=== PATIENT | female | born 2000 | race African-American/Black ===

== ENCOUNTER 2022-07-13 12:51 | Emergency (ER) | payer MEDICAID, OTHER ==
[~2022-07-13] VITALS: Ht 157.5 cm; Wt 64.6 kg
--- NOTE | 2022-07-13 13:04 | ED GI ---
General Chief Complaint: Abdominal/GI Problems Stated Complaint: ABD PAIN/RECTAL BLEEDING/CHEST PAIN History of Present Illness Date Seen by Provider: Jul 13, 2022 Time Seen by Provider: 13:02 Initial Comments 22-year-old female with PMH of ulcerative colitis and anemia, is here with complaints of ongoing abdominal pain, intermittent lightheadedness, lethargy, nausea and vomiting, blood in her stool, and lack of appetite for the past 2 weeks or so. Patient has a GI specialist at [facility], she is currently on mesalamine, and will be starting a new medication sometime this week. Patient feels as if her hemoglobin may be low due to her symptoms and has occasional heartburn and chest discomfort which comes and goes. Patient is feeling very tired and has been having diarrhea as well. Patient also feels as if her heart is beating fast. Denies fever and chills, shortness of breath, constipation. Allergies and Home Medications Allergies Coded Allergies: No Known Drug Allergies (Unverified , 07/13/22) Patient Home Medication List Home Medication List Reviewed: Yes Review of Systems Review of Systems Constitutional: dizziness, malaise EENTM: No Symptoms Reported Respiratory: No Symptoms Reported Cardiovascular: Palpitations, Other (Chest discomfort) Gastrointestinal: Abdominal Pain, Diarrhea, Nausea, Poor Appetite, Poor Fluid Intake, Rectal Bleeding, Vomiting Genitourinary: No Symptoms Reported Musculoskeletal: no symptoms reported Skin: no symptoms reported Psychiatric/Neurological: No Symptoms Reported Endocrine: No Symptoms Reported Hematologic/Lymphatic: No Symptoms Reported Physical Exam Vital Signs Vital Signs - First Documented 07/13/22 12:55 Temp 36.0 Pulse 127 Resp 18 B/P (MAP) 131/92 (105) Pulse Ox 100 O2 Delivery Room Air Capillary Refill : Height/Weight/BMI Height: '" Weight: lbs. oz. kg; BMI Method: General Appearance: WD/WN, no apparent distress HEENT: PERRL/EOMI Neck: full range of motion Respiratory: chest non-tender, lungs clear, normal breath sounds, no respiratory distress Cardiovascular: regular rate, rhythm, no edema Gastrointestinal: normal bowel sounds, soft, no organomegaly, tenderness (Generalized) Rectal: normal exam, normal rectal tone, heme positive stool, other (No hemorrhoids seen or palpated) Extremities: normal range of motion Back: no CVA tenderness Neurologic/Psychiatric: alert, normal mood/affect, oriented x 3 Skin: normal color Focused Exam Lactate Level 07/13/22 13:20: Lactic Acid Level 1.29 Lactic Acid Level Laboratory Tests Test 07/13/22 13:20 Lactic Acid Level 1.29 MMOL/L (0.50-2.00) Progress/Results/Core Measures Results/Orders Lab Results Laboratory Tests Test 07/13/22 13:00 07/13/22 13:20 07/13/22 15:20 Range/Units Urine Color YELLOW Urine Clarity CLEAR Urine pH 6.0 5-9 Urine Specific [place] 1.010 L 1.016-1.022 Urine Protein NEGATIVE NEGATIVE Urine Glucose (UA) NEGATIVE NEGATIVE Urine Ketones NEGATIVE NEGATIVE Urine Nitrite NEGATIVE NEGATIVE Urine Bilirubin NEGATIVE NEGATIVE Urine Urobilinogen 0.2 < = 1.0 MG/DL Urine Leukocyte Esterase NEGATIVE NEGATIVE Urine RBC (Auto) TRACE-I H NEGATIVE Urine RBC NONE /HPF Urine WBC 10-25 H /HPF Urine Squamous Epithelial Cells >50 H /HPF Urine Crystals NONE /LPF Urine Bacteria LARGE H /HPF Urine Casts NONE /LPF Urine Mucus NEGATIVE /LPF Urine Yeast FEW H /HPF Urine Culture Indicated NO Urine Test NEGATIVE NEGATIVE Urine Opiates Screen NEGATIVE NEGATIVE Urine Oxycodone Screen NEGATIVE NEGATIVE Urine Methadone Screen NEGATIVE NEGATIVE Urine Propoxyphene Screen NEGATIVE NEGATIVE Urine Barbiturates Screen NEGATIVE NEGATIVE Ur Tricyclic Antidepressants Screen NEGATIVE NEGATIVE Urine Phencyclidine Screen NEGATIVE NEGATIVE Urine Amphetamines Screen NEGATIVE NEGATIVE Urine Methamphetamines Screen NEGATIVE NEGATIVE Urine Benzodiazepines Screen NEGATIVE NEGATIVE Urine Cocaine Screen NEGATIVE NEGATIVE Urine Cannabinoids Screen NEGATIVE NEGATIVE White Blood Count 14.1 H 4.3-11.0 10^3/uL Red Blood Count 4.76 3.80-5.11 10^6/uL Hemoglobin 11.0 L 11.5-16.0 g/dL Hematocrit 36 35-52 % Mean Corpuscular Volume 75 L 80-99 fL Mean Corpuscular Hemoglobin 23 L 25-34 pg Mean Corpuscular Hemoglobin Concent 31 L 32-36 g/dL Red Cell Distribution Width 18.3 H 10.0-14.5 % Platelet Count 278 130-400 10^3/uL Mean Platelet Volume 10.1 9.0-12.2 fL Immature Granulocyte % (Auto) 0 % Neutrophils (%) (Auto) 49 42-75 % Lymphocytes (%) (Auto) 28 12-44 % Monocytes (%) (Auto) 11 0-12 % Eosinophils (%) (Auto) 11 H 0-10 % Basophils (%) (Auto) 1 0-10 % Neutrophils # (Auto) 6.9 1.8-7.8 10^3/uL Lymphocytes # (Auto) 4.0 1.0-4.0 10^3/uL Monocytes # (Auto) 1.5 H 0.0-1.0 10^3/uL Eosinophils # (Auto) 1.6 H 0.0-0.3 10^3/uL Basophils # (Auto) 0.1 0.0-0.1 10^3/uL Immature Granulocyte # (Auto) 0.1 0.0-0.1 10^3/uL Neutrophils % (Manual) 55 % Lymphocytes % (Manual) 38 % Monocytes % (Manual) % Eosinophils % (Manual) 7 % Sodium Level 134 L 135-145 MMOL/L Potassium Level 3.6 3.6-5.0 MMOL/L Chloride Level 96 L 98-107 MMOL/L Carbon Dioxide Level 25 21-32 MMOL/L Anion Gap 13 5-14 MMOL/L Blood Urea Nitrogen 8 7-18 MG/DL Creatinine 0.69 0.60-1.30 MG/DL Estimat Glomerular Filtration Rate 126 BUN/Creatinine Ratio 12 Glucose Level 87 70-105 MG/DL Lactic Acid Level 1.29 0.50-2.00 MMOL/L Calcium Level 9.8 8.5-10.1 MG/DL Corrected Calcium 10.0 8.5-10.1 MG/DL Magnesium Level 2.2 1.6-2.4 MG/DL Total Bilirubin 0.2 0.1-1.0 MG/DL Aspartate Amino Transf (AST/SGOT) 33 5-34 U/L Alanine Aminotransferase (ALT/SGPT) 13 0-55 U/L Alkaline Phosphatase 141 H 40-136 U/L Troponin I 0.32 *H 0.36 *H <0.30 NG/ML Total Protein 8.4 H 6.4-8.2 GM/DL Albumin 3.8 3.2-4.5 GM/DL Lipase 69 8-78 U/L Smear Scan PLT CLUMPS My Orders Orders - JONAH BLUE MD Cbc With Automated Diff (07/13/22 13:11) Comprehensive Metabolic Panel (07/13/22 13:11) Drug Screen Stat (Urine) (07/13/22 13:11) Hcg,Qualitative Urine (07/13/22 13:11) Lactic Acid Analyzer (07/13/22 13:11) Lipase (07/13/22 13:11) Magnesium (07/13/22 13:11) Ua Culture If Indicated (07/13/22 13:11) Ct Abdomen/Pelvis W (07/13/22 13:12) Manual Differential (07/13/22 13:20) Troponin I Fs (07/13/22 13:38) Ekg Tracing (07/13/22 13:38) Continuous Ekg Monitoring (07/13/22 13:38) Chest 1 View Ap/Pa Only (07/13/22 13:38) Occult Blood Stool (07/13/22 13:39) Iohexol Injection (Omnipaque 350 Mg/Ml 1 (07/13/22 14:00) Received Contrast (Hold Metformin- Contr (07/13/22 14:00) Ns (Ivpb) (Sodium Chloride 0.9% Ivpb Bag (07/13/22 14:00) Aspirin Chewable Tablet (Baby Aspirin Ch (07/13/22 14:15) Pantoprazole Injection (Protonix Injecti (07/13/22 14:15) Troponin I Fs (07/13/22 14:25) Ekg Tracing (07/13/22 14:26) Ed Iv/Invasive Line Start (07/13/22 16:50) Ns Iv 1000 Ml (Sodium Chloride 0.9%) (07/13/22 17:00) Medications Given in ED Current Medications Medications Dose Ordered Sig/Nella Route Start Time Stop Time Status Last Admin Dose Admin Aspirin 324 mg ONCE ONCE PO 07/13/22 14:15 07/13/22 14:16 DC 07/13/22 14:16 324 MG Iohexol 100 ml ONCE ONCE IV 07/13/22 14:00 07/13/22 14:06 DC 07/13/22 14:01 80 ML Pantoprazole 40 mg ONCE ONCE IV 07/13/22 14:15 07/13/22 14:16 DC 07/13/22 14:17 40 MG Sodium Chloride 100 ml ONCE ONCE IV 07/13/22 14:00 07/13/22 14:06 DC 07/13/22 14:02 100 ML Vital Signs/I&O 07/13/22 12:55 Temp 36.0 Pulse 127 Resp 18 B/P (MAP) 131/92 (105) Pulse Ox 100 O2 Delivery Room Air Progress Progress Note : Progress Note 1. ABDOMINAL PAIN: EXACERBATION OF ULCERATIVE COLITIS with POSITIVE FOB - CT ABD: colitis - UA/positive for RBC, WBC, bacteria - UDS is negative -Fecal occult blood at bedside: Positive - CBC: WBC is 14 but no left shift, Hemoglobin is 11, MCV 75 - CMP: unremarkable - lactic acid normal - NS IVF bolus STAT/ Protonix 40mg iv STAT -Patient is currently taking mesalamine at home -Patient's GI specialist is at [facility], and she has an appointment with him on Thursday. CHEST DISCOMFORT: TYPE 2 NSTEMI - CXR: normal - EKG: tachycardia - Troponin: 0.32, second troponin is 0.36 - ASA 324mg STAT -Patient's heart rate has been ranging between 105 to 127/min since she has been in the ER. - Discussed initially with hospitalist at [facility] in [place], Dr. James, who advised to transfer to [facility] since patient's GI specialist is there. -Discussed with hospitalist at [facility], and is accepted for admission. -Patient does not want to go to the hospital by ambulance. She wants to go by private vehicle. Initial ECG Impression Date: Jul 13, 2022 Initial ECG Impression Time: 13:55 Initial ECG Rate: 119 Initial ECG Rhythm: S.Tach Initial ECG Impression: Nonspecific Changes Initial ECG Comparisson: No Previous ECG Available EKG : EKG Time: 15:21 Rate: 108 Rhythm: S.Tach ECG Comparisson: Unchanged ECG Impression: Nonspecific Changes Diagnostic Imaging Diagonstic Imaging: Xray, CT Plain Films/CT/US/NM/MRI: chest, abdomen Comments [facility], [place] NAME: ALEJANDRO PATEL MED REC#: [id number] PT STATUS: REG ER : 2000 PHYSICIAN: JONAH BLEU MD ADMIT DATE: 07/13/22/ER FS Draft Date of Exam:07/13/22 CT ABDOMEN/PELVIS W PROCEDURE: CT abdomen and pelvis with contrast. TECHNIQUE: Multiple contiguous axial images were obtained through the abdomen and pelvis after administration of intravenous contrast. Auto Exposure Controls were utilized during the CT exam to meet ALARA standards for radiation dose reduction. All CT scans use one or more of the following dose optimizing techniques: automated exposure control, MA and/or KvP adjustment based on patient size and exam type or iterative reconstruction. INDICATION: Abdominal pain and rectal bleeding. COMPARISON: No comparison available. FINDINGS: Lung bases are clear. There is no pneumonia or edema. There is no effusion. The liver demonstrates some focal fatty infiltration along the falciform ligament. Portal veins and hepatic veins are patent. The gallbladder is nondistended. There is no radiodense stone or finding of biliary dilatation. The pancreas demonstrates no evidence of abnormality. The spleen is normal in size. There is no adrenal mass. The kidneys enhance normally and are nonobstructed. There is no finding of bowel obstruction. There is no abnormal bowel dilation. There does however appear to be a somewhat edematous appearance of the colon with a few fluid-filled loops of nondilated small bowel. The appendix is normal. There is an involuting right ovarian cyst. Left ovary normal. Uterus and urinary bladder unremarkable. There is no free fluid. There is no free air. There is no adenopathy. There is no evidence of an abscess. The aorta is normal. There is no acute or suspicious osseous abnormality. IMPRESSION: 1. Mildly edematous appearance of the contracted colon. There are also a few fluid-filled loops of nondilated small bowel. An underlying enteritis or colitis would be a consideration. There is no evidence of bowel obstruction. 2. The appendix is normal. 3. Involuting right ovarian cyst. Dictated on workstation # [id number] Dict: 07/13/22 1409 Trans: 07/13/22 1435 [facility] [id number] Interpreted by: RONNIE SONI MD Electronically signed by: [facility] [place], [place] NAME: ALJEANDRO PATEL [facility] REC#: [id number] PT STATUS: REG ER : 2000 PHYSICIAN: JONAH BLUE MD ADMIT DATE: 07/13/22/ER FS Draft Date of Exam:07/13/22 CHEST 1 VIEW AP/PA ONLY INDICATION: Chest pain. COMPARISON: None. DISCUSSION: Single portable upright view of the chest was obtained. Normal heart size. No consolidation, pleural fluid, or pneumothorax. No osseous abnormality. IMPRESSION: Negative chest. Dictated on workstation # [id number] Dict: 07/13/22 1347 Trans: 07/13/22 1356 [id number] Interpreted by: AMEENA METCALF MD Electronically signed by: Departure Communication (Admissions) Time/Spoke to Admitting Phy: 16:40 -Discussed with hospitalist, Dr Gomez, at [facility], and is accepted for admission. Impression Primary Impression: Silent non-ST elevation myocardial infarction (NSTEMI) Additional Impression: Acute ulcerative colitis with rectal bleeding Disposition: T-[facility] Condition: Stable Admissions Decision to Admit Reason: Admit from ER (General) Decision to Admit/Date: Jul 13, 2022 Time/Decision to Admit Time: 15:45 Transfer Transfer Reason: Exceeds level of care Time Spoke to Accepting Phy: 16:40 Transfer Progress Notes Accepted by Dr Gomez for admission Transfer Facility: [facility] Method of Transfer: Private Vehicle Departure-Patient Inst. Referrals: NO,LOCAL PHYSICIAN (PCP/Family) Primary Care Physician JONAH BLUE MD Jul 13, 2022 13:04
[2022-07-13 13:17] LABS: AMPHETAMINE SCREEN, URINE NEGATIVE (NEGATIVE); BARBITURATE SCREEN URINE NEGATIVE (NEGATIVE); BENZODIAZEPINES SCREEN URINE NEGATIVE (NEGATIVE); CANNABINOID SCREEN, URINE NEGATIVE (NEGATIVE); COCAINE SCREEN URINE NEGATIVE (NEGATIVE); HCG,QUALITATIVE URINE NEGATIVE (NEGATIVE); METHADONE STAT NEGATIVE (NEGATIVE); OPIATE SCREEN URINE NEGATIVE (NEGATIVE); OXYCODONE STAT NEGATIVE (NEGATIVE); PROPOXYPHENE STAT NEGATIVE (NEGATIVE); TRICYCLIC ANTIDEPRESSANTS SCRE NEGATIVE (NEGATIVE)
[2022-07-13 13:18] LABS: BACTERIA,URINE LARGE /HPF; BILIRUBIN,URINE NEGATIVE (NEGATIVE); CLARITY,URINE CLEAR; COLOR,URINE YELLOW; GLUCOSE, URINE (UA) NEGATIVE (NEGATIVE); KETONES,URINE NEGATIVE (NEGATIVE); LEUKOCYTE ESTERASE ,URINE NEGATIVE (NEGATIVE); NITRITE,URINE NEGATIVE (NEGATIVE); PROTEIN,URINE NEGATIVE (NEGATIVE); SQUAMOUS EPITHELIAL CELL,UR >50 /HPF; YEAST,URINE FEW /HPF
[2022-07-13 13:31] LABS: BASOPHILS # (AUTO) 0.1 10^3/uL (0.0-0.1); BASOPHILS % (AUTO) 1 % (0-10); EOSINOPHILS # (AUTO) 1.6 10^3/uL (0.0-0.3); EOSINOPHILS % (AUTO) 11 % (0-10); HEMATOCRIT 36 % (35-52); LYMPHOCYTES % (AUTO) 28 % (12-44); MEAN CORPUSCULAR HEMOGLOBIN 23 pg (25-34); MEAN CORPUSCULAR HGB CONC 31 g/dL (32-36); MEAN CORPUSCULAR VOLUME 75 fL (80-99); MEAN PLATELET VOLUME 10.1 fL (9.0-12.2); MONOCYTES # (AUTO) 1.5 10^3/uL (0.0-1.0); MONOCYTES % (AUTO) 11 % (0-12); NEUTROPHILS # (AUTO) 6.9 10^3/uL (1.8-7.8); NEUTROPHILS % (AUTO) 49 % (42-75); PLATELET COUNT 278 10^3/uL (130-400); WHITE BLOOD COUNT 14.1 10^3/uL (4.3-11.0)
[2022-07-13 13:51] LABS: ALBUMIN 3.8 GM/DL (3.2-4.5); BILIRUBIN,TOTAL 0.2 MG/DL (0.1-1.0); CALCIUM 9.8 MG/DL (8.5-10.1); CREATININE SERUM 0.69 MG/DL (0.60-1.30); MAGNESIUM 2.2 MG/DL (1.6-2.4); POTASSIUM 3.6 MMOL/L (3.6-5.0); TOTAL PROTEIN 8.4 GM/DL (6.4-8.2)
--- NOTE | 2022-07-13 13:56 | Diagnostic Imaging Report ---
INDICATION: Chest pain. COMPARISON: None. DISCUSSION: Single portable upright view of the chest was obtained. Normal heart size. No consolidation, pleural fluid, or pneumothorax. No osseous abnormality. IMPRESSION: Negative chest. Dictated by: Dictated on workstation # [id number]
[2022-07-13] MEDS ORDERED: IOHEXOL 350 MG/ML 100 ML (OMNIPAQUE 350) VIAL IV ONE (14:00)
[2022-07-13] MEDS ORDERED: NS 100 ML (IVPB) BAG IV ONE (14:00)
[2022-07-13] MEDS ORDERED: HOLD METFORMIN - RECEIVED CONTRAST 20 ML VIAL IV SCH (14:00)
[2022-07-13] MEDS ORDERED: ASPIRIN 81 MG CHEW (CHILDREN'S ASA) PO ONE (14:15)
[2022-07-13] MEDS ORDERED: PANTOPRAZOLE 40 MG (PROTONIX) VIAL IV ONE (14:15)
--- NOTE | 2022-07-13 14:36 | Diagnostic Imaging Report ---
PROCEDURE: CT abdomen and pelvis with contrast. TECHNIQUE: Multiple contiguous axial images were obtained through the abdomen and pelvis after administration of intravenous contrast. Auto Exposure Controls were utilized during the CT exam to meet ALARA standards for radiation dose reduction. All CT scans use one or more of the following dose optimizing techniques: automated exposure control, MA and/or KvP adjustment based on patient size and exam type or iterative reconstruction. INDICATION: Abdominal pain and rectal bleeding. COMPARISON: No comparison available. FINDINGS: Lung bases are clear. There is no pneumonia or edema. There is no effusion. The liver demonstrates some focal fatty infiltration along the falciform ligament. Portal veins and hepatic veins are patent. The gallbladder is nondistended. There is no radiodense stone or finding of biliary dilatation. The pancreas demonstrates no evidence of abnormality. The spleen is normal in size. There is no adrenal mass. The kidneys enhance normally and are nonobstructed. There is no finding of bowel obstruction. There is no abnormal bowel dilation. There does however appear to be a somewhat edematous appearance of the colon with a few fluid-filled loops of nondilated small bowel. The appendix is normal. There is an involuting right ovarian cyst. Left ovary normal. Uterus and urinary bladder unremarkable. There is no free fluid. There is no free air. There is no adenopathy. There is no evidence of an abscess. The aorta is normal. There is no acute or suspicious osseous abnormality. IMPRESSION: 1. Mildly edematous appearance of the contracted colon. There are also a few fluid-filled loops of nondilated small bowel. An underlying enteritis or colitis would be a consideration. There is no evidence of bowel obstruction. 2. The appendix is normal. 3. Involuting right ovarian cyst. Dictated by: Dictated on workstation # [id number]
[2022-07-13 14:57] LABS: EOSINOPHILS % (MANUAL) 7 %; LYMPHOCYTES % (MANUAL) 38 %; NEUTROPHILS % (MANUAL) 55 %; SMEAR SCAN COMMENT PLT CLUMPS
[2022-07-13] MEDS ORDERED: NS IV 1000 ML 1,000 ML IV SCH (17:00)
[2022-07-13 19:05] VITALS: BP 115/78
== END 2022-07-13 19:20 | disposition short-term general hospital (02) ==
LOC: ER FS 12:55
DX: I21.4 Non-ST elevation (NSTEMI) myocardial infarction (principal); K51.911 Ulcerative colitis, unspecified with rectal bleeding; Z79.899 Other long term (current) drug therapy
CPT/HCPCS: 36415; 71045; 74177; 80053; 80306; 81000; 82274; 83605; 83690; 83735; 84484; 84703; 85007; 85027; 93005